=== PATIENT | male | born 1965 | race Caucasian/White ===

== ENCOUNTER 2020-04-03 20:52 | Emergency (ER) | payer OTHER, MEDICAID, SELFPAY ==
[2020-04-03 20:58] VITALS: BP 187/103; PULSE 78; RESP 19; TEMP 36.6; O2SAT 98; BMI 32.5
[2020-04-03 21:00] VITALS: BP 187/103; PULSE 83; RESP 17; O2SAT 98
--- NOTE | 2020-04-03 21:03 | ECG_ITS ---
APPROVED REPORT Exam: Resting ECG HR:77 bpm ECG Measurements Heart Rate 77 AXES ME 178 P 62 QRSd 98 QRS 31 QT 388 T 27 QTc 439 Conclusion Normal sinus rhythm ST abnormality, possible digitalis effect Abnormal ECG Electronically signed by : Kushal Scherer, 04/05/2020 19:58:57
--- NOTE | 2020-04-03 21:04 | CT_ITS ---
PROCEDURE: CT HEAD/BRAIN W CON CLINICAL INDICATION: numbness left face NUMBNESS-LEFT SIDE. PT STATES LEFT ARM HAS BEEN GETTING NUMB OFF AND ON FOR AWHILE ALSO HAD LEFT SIDED FACIAL NUMBNESS TONIGHT. PT CHEWS TOBACCO NO SURGERIES OR HX OF CA NO PRIORS COMPARISON: CT CT HEAD/BRAIN WO CON from 04/03/[address] ANGIO NECK from 04/03/2020 TECHNIQUE: IV Contrast: 100ML Isovue 370 Axial images obtained. All CT scans at the facility use one or more dose reduction, viz: automated exposure control, ma/kV adjustment per patient size (including targeted exams where dose is matched to indication, i.e. head), or iterative reconstruction technique. FINDINGS: CTA neck: The aortic arch, great vessels, carotids and vertebral show no evidence of significant stenosis, occlusive change, ulcerating plaque, or dissection. There is minimal amount of calcific plaque at the ostium of the right vertebral with approximately 20 percent narrowing. CTA head: No aneurysm, AVM, , dissection, or major intracranial occlusive process. No enhancing lesions. IMPRESSION: No significant stenosis, dissection, occluding thrombus or aneurysm Dictated by: Obie Telles MD 04/04/2020 10:53 Obie Telles MD in [facility] 04/05/2020 07:43
--- NOTE | 2020-04-03 21:04 | CT_ITS ---
Procedure: CT ANGIO NECK CLINICAL HISTORY: numbness left face Left upper extremity and left-sided facial numbness COMPARISON: No exams were available for comparison TECHNIQUE: IV Contrast: 100ml Isovue 370 Axial images obtained with sagittal and coronal reformats. All CT scans at the facility use one or more dose reduction, viz: automated exposure control, ma/kV adjustment per patient size (including targeted exams where dose is matched to indication, i.e. head), or iterative reconstruction technique. FINDINGS: CTA neck: The aortic arch, great vessels, carotids and vertebral show no evidence of significant stenosis, occlusive change, ulcerating plaque, or dissection. There is minimal amount of calcific plaque at the ostium of the right vertebral with approximately 20 percent narrowing. CTA head: No aneurysm, AVM, , dissection, or major intracranial occlusive process. No enhancing lesions. IMPRESSION: No significant stenosis, dissection, occluding thrombus or aneurysm Dictated by: Obie Telles MD 04/04/2020 08:40 Obie Telles MD in [facility] 04/04/2020 08:42
--- NOTE | 2020-04-03 21:04 | XR_ITS ---
PROCEDURE: XR CHEST 2V CLINICAL HISTORY: numbness left face, cp Chest pain COMPARISON: CR CXR CHEST(2 VIEWS-NOT PORTABLE) from 08/05/2015 CR CXR1 CHEST-PORTABLE from 08/07/2015 FINDINGS: The cardiomediastinal silhouette and pulmonary vascularity are within normal limits. The lungs are clear without infiltrates, suspicious nodules, or pleural effusions. No acute bony abnormalities. IMPRESSION: No acute findings. Dictated by: Obie Telles MD 04/04/2020 05:35 Obie Telles MD in [facility] 04/04/2020 05:35
[2020-04-03 21:13] LABS: Chloride 98 mmol/L (98-107); Sodium 138 mmol/L (136-145)
[2020-04-03 21:14] LABS: Basophils # 0.1 K/mm3 (0-0.2); Basophils % 0.8 % (0.1-2.0); Eosinophils # 0.2 K/mm3 (0.0-0.4); Hemoglobin 14.7 g/dL (14.1-18.0); Lymphocytes # 2.6 K/mm3 (0.7-4.5); Lymphocytes % 32.2 % (10-50); Mean Corpuscular HGB Conc 33.3 g/dL (31.8-35.4); Mean Corpuscular Hemoglobin 29.2 pg (27.0-31.2); Mean Corpuscular Volume 87.6 fl (80-94); Mean Platelet Volume 8.4 fl (7.4-10.4); Monocytes # 0.5 K/mm3 (0.1-1.0); Monocytes % 6.4 % (1.7-9.3); Neutrophils # 4.7 K/mm3 (1.8-7.8); Neutrophils % 58.6 % (37.0-80.0); Platelet Count 165 K/mm3 (142-424); Potassium 3.2 mmoL/L (3.5-5.1); Red Blood Count 5.03 M/mm3 (4.60-6.20); Red Cell Distribution Width 13.8 % (11.5-17.5)
[2020-04-03 21:16] LABS: Blood Urea Nitrogen 16 mg/dl (9-20); Creatinine Clearance Estimated 116 mL/min (50-200)
[2020-04-03 21:17] LABS: Anion Gap 9.2 mEq/L (5-15); Calcium 9.8 mg/dl (8.4-10.2); Carbon Dioxide 34 mmol/L (22.0-30.0); Estimated Glomerular Filt Rate 77 ml/min (>60); GFR (African American) 94 ML/MIN (>60); Glucose 198 mg/dl (74-100)
[2020-04-03 21:29] LABS: Troponin I < 0.01 ng/ml (0.00-0.034)
[2020-04-03 21:30] VITALS: BP 144/82; PULSE 75; RESP 17; O2SAT 95
[2020-04-03 21:48] LABS: Thyroid Stimulating Hormone 2.19 uIU/mL (0.465-4.68)
[2020-04-03 21:48] LABS: Microscopic, Urine URINE MICROSCOPIC (MICROSCOPIC)
[2020-04-03 21:53] LABS: Appearance,Urine CLEAR (Clear); Bilirubin,Urine Negative (Negative); Blood, Urine Negative (Negative); Color,Urine YELLOW (Yellow); Glucose,Urine (UA) Negative (Negative); Ketones,Urine Negative (Negative); Leukocyte Esterase,Urine Negative (Negative); Nitrate,Urine Negative (Negative); Protein,Urine Negative (Negative); Specific Gravity, Urine <= 1.005 (1.005-1.030); Urobilinogen,Urine 0.2 EU/dl (0.2)
[2020-04-03 22:00] VITALS: BP 130/83; PULSE 70; RESP 17; O2SAT 95
--- NOTE | 2020-04-03 22:14 | CT_ITS ---
PROCEDURE: CT HEAD/BRAIN WO CON CLINICAL INDICATION: numbness Left upper extremity numbness, left-sided facial numbness COMPARISON: No exams were available for comparison TECHNIQUE: Axial images obtained. All CT scans at the facility use one or more dose reduction, viz: automated exposure control, ma/kV adjustment per patient size (including targeted exams where dose is matched to indication, i.e. head), or iterative reconstruction technique. FINDINGS: No midline shift, mass effect, intracranial hemorrhage, hydrocephalus, or extra-axial fluid collection is evident. The calvarium has an unremarkable appearance. No mastoid effusion. No sinus air-fluid level. IMPRESSION: No acute intracranial finding Dictated by: Obie Telles MD 04/04/2020 08:31 Obie Telles MD in [facility] 04/04/2020 09:01
[2020-04-03 23:00] VITALS: BP 144/77; PULSE 61; RESP 17; O2SAT 95
--- NOTE | 2020-04-03 23:15 | HMH.EDNEU ---
ED Disposition Clinical Impression: TIA (transient ischemic attack), Chest pain at rest HTN (hypertension) Qualifiers: Hypertension type: essential hypertension Qualified Code(s): I10 - Essential (primary) hypertension Diabetes mellitus Qualifiers: Diabetes mellitus type: type 2 Diabetes mellitus director long term care insulin use: unspecified director long term care insulin use status Diabetes mellitus complication status: with other specified complication Qualified Code(s): E11.69 - Type 2 diabetes mellitus with other specified complication Disposition: Home, Self-Care Condition on Discharge: Good Instructions: DI for Chest Pain Additional Instructions: call pcp for follow up Referrals: Che Rodriguez [Primary Care Provider] - - Critical Care Critical Care Time: No Attestation: On 04/03/20, the high probability of a clinically significant, sudden or life threatening deterioration of the following system(s) required my full and direct attention, intervention and personal management. The time I documented below is in addition to time spent performing reported procedures but includes the following listed in this critical care notation. Medical Decision Making - Medical Records Medical records reviewed: Yes: I reviewed the patient's medical records. - Yemi Inquiry Pt receiving controlled substance: No Vital Signs: 04/03/20 20:58 04/03/20 21:00 04/03/20 21:30 Temperature 97.8 F Temperature Source Oral Pulse Rate [Right Brachial] 78 83 75 Respiratory Rate 19 17 17 Blood Pressure [Right Arm] 187/103 H 187/103 H 144/82 H Blood Pressure Mean [Right Arm] 131 131 102 Blood Pressure Source [Right Arm] Automatic Cuff Automatic Cuff Automatic Cuff Blood Pressure Position [Right Arm] Sitting Supine Supine 02 Sat by Pulse Oximetry 98 98 95 Oxygen Delivery Method Room Air Room Air Room Air 04/03/20 22:00 Temperature Temperature Source Pulse Rate [Right Brachial] 70 Respiratory Rate 17 Blood Pressure [Right Arm] 130/83 Blood Pressure Mean [Right Arm] 98 Blood Pressure Source [Right Arm] Automatic Cuff Blood Pressure Position [Right Arm] Supine 02 Sat by Pulse Oximetry 95 Oxygen Delivery Method Room Air - Lab Data Lab results reviewed: Yes: I reviewed the patient's lab results. Lab Results 04/03/20 20:58: WBC 8.0, RBC 5.03, Hgb 14.7, Hct 44.0, MCV 87.6, MCH 29.2, MCHC 33.3, RDW 13.8, Plt Count 165, MPV 8.4, Neut % (Auto) 58.6, Lymph % (Auto) 32.2, [place]ates % (Auto) 6.4, Eos % (Auto) 2.0, Baso % (Auto) 0.8, Neut # (Auto) 4.7, Lymph # (Auto) 2.6, Yates # (Auto) 0.5, Eos # (Auto) 0.2, Baso # (Auto) 0.1 04/03/20 20:58: Sodium 138, Potassium 3.2 L, Chloride 98, Carbon Dioxide 34 H, Anion Gap 9.2, BUN 16, Creatinine 1.00, Estimated Creat Clear 116, Estimated GFR 77, Est GFR ( Amer) 94, Glucose 198 H, Calcium 9.8, Troponin I < 0.01, TSH 2.19 04/03/20 20:58: Free T4 1.20 04/03/20 21:45: Urine Color Yellow, Urine Appearance Clear, Urine pH 7.0, Ur Specific [place] <= 1.005, Urine Protein Negative, Urine Glucose (UA) Negative, Urine Ketones Negative, Urine Blood Negative, Urine Nitrate Negative, Urine Bilirubin Negative, Urine Urobilinogen 0.2, Ur Leukocyte Esterase Negative, Ur Squamous Epith Cells 3-5 04/04/20 00:20: Troponin I < 0.01 Result diagrams: 04/03/20 20:58 04/03/20 20:58 Orders (Tests/Meds): ED MEDICATIONS Discontinued Medications Generic Name Dose Route Start Last Admin Trade Name Elianq PRN Reason Stop Dose Admin Belladonna Alkaloids 60 ml 04/03/20 23:51 04/03/20 23:52 Gi Cocktail 60ml Udc PO 04/03/20 23:52 60 ml ONCE ONE Administration Iopamidol 100 ml 04/03/20 23:38 04/03/20 22:25 Iopamidol-370 (76%);100ml Bottle IV 04/03/20 23:39 100 ml ONCE ONE Administration Ioversol 75 ml 04/03/20 23:38 Ioversol-350 (74%) 100ml Vial IV 04/03/20 23:39 ONCE ONE Protocol Sodium Chloride 10 ml 04/03/20 23:38 04/03/20 22:25 Sodium Chloride 0.9% 10ml Syr (Rad Only) IV 04/03/20 2
[2020-04-03 23:30] VITALS: BP 154/83; PULSE 61; RESP 17; O2SAT 95
[2020-04-04] VITALS: BP 145/85; PULSE 59; RESP 17; O2SAT 95
[2020-04-04 00:30] VITALS: BP 149/88; PULSE 55; RESP 17; O2SAT 98
[2020-04-04 01:00] VITALS: BP 147/81; PULSE 60; RESP 18; O2SAT 98
[2020-04-04 01:02] LABS: Troponin I < 0.01 ng/ml (0.00-0.034)
[2020-04-04 02:19] VITALS: BP 125/74; PULSE 73; RESP 16; TEMP 36.8; O2SAT 98
== END 2020-04-04 02:20 | disposition home or self-care (01) ==
PROVIDERS: Emergency Provider Emergency Medicine; PCP Nurse Practitioner Acute Care
DX: G45.8 Other transient cerebral ischemic attacks and related syndromes (principal); E11.65 Type 2 diabetes mellitus with hyperglycemia; I10 Essential (primary) hypertension; Z88.1 Allergy status to other antibiotic agents; Z79.899 Other long term (current) drug therapy
CPT/HCPCS: 36415; 70450; 70460; 70496; 70498; 71046; 80048; 81001; 84439; 84443; 84484; 85025; 93005; 96365; 99284; Q9967

== ENCOUNTER 2021-01-05 19:35 | Emergency (ER) | payer OTHER, SELFPAY ==
[2021-01-05 20:18] VITALS: BP 146/97; PULSE 65; RESP 19; TEMP 36.6; O2SAT 98; BMI 33.0
[2021-01-05 20:30] VITALS: BP 146/97; PULSE 65; RESP 19; TEMP 36.6
--- NOTE | 2021-01-05 20:46 | HMH.EDUTC ---
[facility] Disposition Clinical Impression: Exposure to COVID-19 virus Disposition: Home, Self-Care Condition on Discharge: Good Instructions: DI for COVID-19 (Suspected or Confirmed ), Preventing the Spread of Coronavirus Discharge Instructions Additional Instructions: Drink plenty of fluids. Take tylenol for pain or fever. Return if you begin to have difficulty breathing. Follow up with your regular doctor. GO TO THE ER FOR ANY WORSENING SYMPTOMS Quarantine until you know the results of your covid-19 test. If it is positive, the health department should call you and give you further instructions about your length of Quarantine and other things. Notify your school or workplace of your results and follow their instructions regarding return to work/school. Referrals: Che Rodriguez [Primary Care Provider] - Time of Disposition: 20:48 Medical Decision Making - Medical Records Medical records reviewed: No: I reviewed the patient's medical records. - Yemi Inquiry Pt receiving controlled substance: No Vital Signs: 01/05/21 20:18 01/05/21 20:30 Temperature 98 F 98 F Temperature Source Oral Pulse Rate 65 Pulse Rate [Left] 65 Respiratory Rate 19 19 Blood Pressure 146/97 H Blood Pressure [Right Arm] 146/97 H Blood Pressure Mean [Right Arm] 113 02 Sat by Pulse Oximetry 98 Orders (Tests/Meds): ORDERS Category Date Time Status Covid-19 Nasal PCR ([facility]) Routine Lab 01/05/21 20:13 Received [facility] HPI - General Stated complaint: covid test Time Seen by Provider: 01/05/21 20:46 Mode of Arrival: Ambulatory Source of Information: Patient Limitations: No Limitations Description of Symptoms (Recalled from Triage Doc. by RN): pt c/o a CHRISTY. expost last week to covid positive family member. HEENT Symptoms (Recalled from RN notes): Yes (CHRISTY) Resp Symptoms (Recalled from RN notes): No Skin Symptoms (Recalled from RN notes): No MS Symptoms (Recalled from RN notes): No Functional Status (Recalled from RN notes): na - History of Present Illness Provider Complaint: He was exposed by a family member and one of his coworkers with covid-19 last week. He has had a head ache on and off for the past 2 days. He has been vaccinated against covid-19. He denies any fever/chills/shortness or breath, and cough. - Related Data Home Medications Medication Instructions Recorded Confirmed Amlodipine Besylate [Amlodipine 5 mg PO BID 04/03/20 04/03/20 10mg Tab] Aspirin 81 mg PO HS 04/03/20 04/03/20 Magnesium Oxide 400 mg PO DAILY 04/03/20 04/03/20 Metformin HCl 500 mg PO TID 04/03/20 04/03/20 Olmesartan/Hydrochlorothiazide 40 mg PO HS 04/03/20 04/03/20 [Olmesartan-Hctz 20-12.5 mg Tab] Potassium 99 mg PO DAILY 04/03/20 04/03/20 Rosuvastatin Calcium 10 mg PO HS 04/03/20 04/03/20 Tramadol HCl [Tramadol 50mg 50 mg PO HSP PRN 04/03/20 04/03/20 Tab] Vit D3-Vit K/Berberine/Hops 1 each PO DAILY 04/03/20 04/03/20 [Ostera Tablet] carvediloL [Coreg 6.25mg 12.5 mg PO BID 04/03/20 04/03/20 Tablet] hydroCHLOROthiazide 25 mg PO DAILY 04/03/20 04/03/20 [Hydrochlorothiazide] Allergies Allergy/AdvReac Type Severity Reaction Status Date / Time ciprofloxacin [From CIPRO] Allergy Mild Verified 04/03/20 23:50 - Worker's Comp Is this a Worker's Comp case?: No [facility] History - Hepatitis A Screen Drug use history?: No High risk sexual behaviors?: No History of sexually transmitted infection?: No Currently employed?: No Childcare worker?: No Do you have indoor plumbing?: Yes Do you have electricity?: Yes Attestation statement:: This patient has been screened for Hepatitis A risk factors. I have reviewed the patient's past medical history: Yes ROS Obtained: Yes All systems reviewed & no additional complaints - Constitutional Constitutional: Reports system reviewed and no additional complaints, except as docu - Eyes Eyes: Reports system reviewed and no additional complaints,
== END 2021-01-05 21:04 | disposition home or self-care (01) ==
PROVIDERS: Emergency Provider Nurse Practitioner Family; PCP Nurse Practitioner Acute Care
DX: U07.1 COVID-19 (principal)
CPT/HCPCS: 99202; G0463; U0003

== ENCOUNTER → 2021-06-21 11:57 | Outpatient (CLI) | payer OTHER, SELFPAY ==
--- NOTE | 2021-06-21 12:08 | XR_ITS ---
FINAL REPORT CLINICAL HISTORY: RIB PAIN ON LEFT SIDE, RIB INJURY 3 DAYS AGO COMPARISON: 04/04/2020 FINDINGS: 3 VIEW LEFT RIB SERIES AND CHEST X-RAY. Chest: The heart is normal in size. The mediastinum is normal. The lungs are clear. There is no pneumothorax. Ribs: Three views demonstrate no acute displaced fracture. IMPRESSION: No acute process Reviewed, Interpreted and Dictated by Jimi aRmos MD Transcribed by Eugenia Aquino Authenticated by Jimi Ramos MD on 06/21/2021 02:58:21 PM [facility]
== END ==
PROVIDERS: PCP Family Medicine; Visit Provider Nurse Practitioner Family
DX: R07.81 Pleurodynia (principal); S29.9XXA Unspecified injury of thorax, initial encounter
CPT/HCPCS: 71101

== ENCOUNTER 2021-12-06 10:47 | Emergency (ER) | payer OTHER, SELFPAY ==
[2021-12-06 11:01] VITALS: BP 145/90; PULSE 68; RESP 16; TEMP 36.8; O2SAT 96; BMI 33.0
--- NOTE | 2021-12-06 11:15 | ECG_ITS ---
APPROVED REPORT Exam: Resting ECG HR:63 bpm ECG Measurements Heart Rate 63 AXES OH 180 P 47 QRSd 99 QRS -5 QT 421 T -1 QTc 429 Conclusion SINUS RHYTHM NORMAL ECG UNCONFIRMED REPORT Electronically signed by : Kushal Scherer MD 12/07/2021 19:54:51
--- NOTE | 2021-12-06 11:20 | HMH.EDUTC ---
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 - Yemi Inquiry Pt receiving controlled substance: No Vital Signs: 12/06/21 11:01 Temperature 98.3 F Temperature Source Oral Pulse Rate [Left] 68 Respiratory Rate 16 Blood Pressure [Right Arm] 145/90 H Blood Pressure Mean [Right Arm] 108 02 Sat by Pulse Oximetry 96 [facility] HPI - General Stated complaint: High BP Time Seen by Provider: 12/06/21 11:20 Mode of Arrival: Ambulatory Source of Information: Patient Limitations: No Limitations Description of Symptoms (Recalled from Triage Doc. by RN): patient comes in with complaints of high blood pressure. started 10 years ago, medication seems to not be working. monday he noticed that his blood pressure was high. when his blood pressure is up he experiences numbness in his legs, feet and arms HEENT Symptoms (Recalled from RN notes): No Resp Symptoms (Recalled from RN notes): No Skin Symptoms (Recalled from RN notes): No MS Symptoms (Recalled from RN notes): No Functional Status (Recalled from RN notes): n/a - History of Present Illness Provider Complaint: He is here with complaints of his blood pressure running high at home and bilateral leg numbness for the past several days. He denies any back pain and any injury. He denies any recent chest pain. - Related Data Home Medications Medication Instructions Recorded Confirmed Amlodipine Besylate [Amlodipine 5 mg PO BID 04/03/20 04/03/20 10mg Tab] Aspirin 81 mg PO HS 04/03/20 04/03/20 Magnesium Oxide 400 mg PO DAILY 04/03/20 04/03/20 Metformin HCl 500 mg PO TID 04/03/20 04/03/20 Olmesartan/Hydrochlorothiazide 40 mg PO HS 04/03/20 04/03/20 [Olmesartan-Hctz 20-12.5 mg Tab] Potassium 99 mg PO DAILY 04/03/20 04/03/20 Rosuvastatin Calcium 10 mg PO HS 04/03/20 04/03/20 Tramadol HCl [Tramadol 50mg 50 mg PO HSP PRN 04/03/20 04/03/20 Tab] Vit D3-Vit K/Berberine/Hops 1 each PO DAILY 04/03/20 04/03/20 [Ostera Tablet] carvediloL [Coreg 6.25mg 12.5 mg PO BID 04/03/20 04/03/20 Tablet] hydroCHLOROthiazide 25 mg PO DAILY 04/03/20 04/03/20 [Hydrochlorothiazide] Allergies Allergy/AdvReac Type Severity Reaction Status Date / Time ciprofloxacin [From CIPRO] Allergy Mild Verified 12/06/21 11:08 - Worker's Comp Is this a Worker's Comp case?: No [facility] History - Hepatitis A Screen Attestation statement:: This patient has been screened for Hepatitis A risk factors. I have reviewed the patient's past medical history: Yes ROS Obtained: Yes All systems reviewed & no additional complaints - Constitutional Constitutional: Reports as per HPI, Denies chills, Denies fever(s), Denies poor appetite, Denies malaise - Eyes Eyes: Denies eye discharge - ENT Ears, Nose, Mouth, and Throat: Reports as per HPI - Cardiovascular Cardiovascular: Denies chest pain - Respiratory Respiratory: Denies chest congestion, Reports cough - Gastrointestinal Gastrointestingal: Reports: nausea. Denies: abdominal pain, cramping, diarrhea, vomiting Physical Exam - General General appearance: alert, in no apparent distress - Head Head exam: atraumatic, normocephalic, normal inspection - Eye Eye exam: Present: normal appearance, PERRL, EOMI - ENT ENT exam: Present: normal exam, normal oropharynx, mucous
[2021-12-06 11:45] VITALS: BP 152/89; PULSE 62; RESP 18; O2SAT 96; BMI 33.0
--- NOTE | 2021-12-06 11:48 | XR_ITS ---
FINAL REPORT TECHNIQUE: Single view chest CLINICAL HISTORY: cough COMPARISON: 06/21/2021 FINDINGS: A single view of the chest was obtained. The heart and mediastinum are within normal limits. The lungs are clear. There is no pneumothorax. Osseous structures are unremarkable. IMPRESSION: No acute cardiopulmonary process. Reviewed, Interpreted and Dictated by Miguel Simmons III, MD Transcribed by Eugenia Aquino Authenticated and . [facility]
[2021-12-06 12:17] LABS: Basophils # 0.1 K/mm3 (0-0.2); Basophils % 1.3 % (0.1-2.0); Eosinophils # 0.1 K/mm3 (0.0-0.4); Eosinophils % 1.7 % (0.1-12.0); Hematocrit 45.2 % (42.0-52.0); Hemoglobin 14.4 g/dL (14.1-18.0); Lymphocytes # 1.6 K/mm3 (0.7-4.5); Lymphocytes % 31.2 % (10-50); Mean Corpuscular HGB Conc 31.7 g/dL (31.8-35.4); Mean Corpuscular Hemoglobin 28.9 pg (27.0-31.2); Mean Corpuscular Volume 91.1 fl (80-94); Mean Platelet Volume 8.5 fl (7.4-10.4); Monocytes # 0.3 K/mm3 (0.1-1.0); Monocytes % 5.4 % (1.7-9.3); Neutrophils # 3.1 K/mm3 (1.8-7.8); Neutrophils % 60.4 % (37.0-80.0); Platelet Count 169 K/mm3 (142-424); Red Blood Count 4.97 M/mm3 (4.60-6.20); Red Cell Distribution Width 14.1 % (11.5-17.5); White Blood Count 5.1 K/mm3 (4.8-10.8)
[2021-12-06 12:21] LABS: Chloride 100 mmol/L (98-107)
[2021-12-06 12:22] LABS: Potassium 3.5 mmoL/L (3.5-5.1); Sodium 141 mmol/L (136-145)
[2021-12-06 12:24] LABS: Alanine Aminotransferase 23 U/L (12-78); Albumin Level 4.5 g/dl (3.5-5.0); Albumin/Globulin Ratio 1.5 (1.1-1.8); Alkaline Phosphatase 81 U/L (38-126); Anion Gap 9.5 mEq/L (5-15); Aspartate Amino Transferase 31 U/L (17-59); Bilirubin,Total 0.8 mg/dl (0.2-1.3); Carbon Dioxide 35 mmol/L (22.0-30.0); Globulin 3.1 g/dL (1.3-3.2); Total Protein,Serum 7.6 g/dl (6.3-8.2)
[2021-12-06 12:25] LABS: Calcium 9.7 mg/dl (8.4-10.2); Glucose 147 mg/dl (74-100)
[2021-12-06 12:29] LABS: Blood Urea Nitrogen 14 mg/dl (9-20); Creatinine Clearance Estimated 132 mL/min (50-200); Estimated Glomerular Filt Rate 87 ml/min (>60); GFR (African American) 105 ML/MIN (>60)
[2021-12-06 12:37] LABS: Troponin I < 0.01 ng/ml (0.00-0.034)
[2021-12-06 12:45] VITALS: BP 146/83; PULSE 54; O2SAT 97
[2021-12-06 12:49] VITALS: BP 146/83; PULSE 63; O2SAT 95
--- NOTE | 2021-12-06 12:49 | PC.NURSE ---
rounded on pt, updated about poc. no needs at this time
--- NOTE | 2021-12-06 13:05 | PC.NURSE ---
ed md at bedside discussing poc with pt, discussing lab results
--- NOTE | 2021-12-06 13:11 | HMH.EDGENADL ---
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 The time I documented below is in addition to time spent performing reported procedures but includes the following listed in this critical care notation. Medical Decision Making - Medical Records Medical records reviewed: Yes: I reviewed the patient's medical records. - Yemi Inquiry Pt receiving controlled substance: No Vital Signs: 12/06/21 11:01 12/06/21 11:45 12/06/21 12:45 Temperature 98.3 F Temperature Source Oral Pulse Rate 54 L Pulse Rate [Left] 68 62 Respiratory Rate 16 18 Blood Pressure 146/83 H Blood Pressure [Right Arm] 145/90 H 152/89 H Blood Pressure Mean [Right Arm] 108 110 Blood Pressure Source [Right Arm] Automatic Cuff Blood Pressure Position [Right Arm] Sitting 02 Sat by Pulse Oximetry 96 96 97 Oxygen Delivery Method Room Air 12/06/21 12:49 Temperature Temperature Source Pulse Rate 63 Pulse Rate [Left] Respiratory Rate Blood Pressure 146/83 H Blood Pressure [Right Arm] Blood Pressure Mean [Right Arm] Blood Pressure Source [Right Arm] Blood Pressure Position [Right Arm] 02 Sat by Pulse Oximetry 95 Oxygen Delivery Method - Lab Data Lab Results 12/06/21 11:50: WBC 5.1, RBC 4.97, Hgb 14.4, Hct 45.2, MCV 91.1, MCH 28.9, MCHC 31.7 L, RDW 14.1, Plt Count 169, MPV 8.5, Neut % (Auto) 60.4, Lymph % (Auto) 31.2, [place] % (Auto) 5.4, Eos % (Auto) 1.7, Baso % (Auto) 1.3, Neut # (Auto) 3.1, Lymph # (Auto) 1.6, [place] # (Auto) 0.3, Eos # (Auto) 0.1, Baso # (Auto) 0.1 12/06/21 11:50: Sodium 141, Potassium 3.5, Chloride 100, Carbon Dioxide 35 H, Anion Gap 9.5, BUN 14, Creatinine 0.90, Estimated Creat Clear 132, Estimated GFR 87, Est GFR ( Amer) 105, Glucose 147 H, Calcium 9.7, Total Bilirubin 0.8, AST 31, ALT 23, Alkaline Phosphatase 81, Troponin I < 0.01, Total Protein 7.6, Albumin 4.5, Globulin 3.1, Albumin/Globulin Ratio 1.5 Result diagrams: 12/06/21 11:50 12/06/21 11:50 Orders (Tests/Meds): ORDERS Category Date Time Status XR chest portable Stat Exams 12/06/21 11:48 Taken Troponin I Q3H Lab 12/06/21 15:00 Ordered Troponin I Q3H Lab 12/06/21 18:00 Ordered - Radiology Data #1 Image(s): Chest Image Reviewed: Yes I reviewed the patient's radiology results, Yes I reviewed the patient's radiology image, Yes I have reviewed radiologist's interpretation Preliminary Findings: Normal/NAD - ECG Data Tracing #1 I reviewed this ECG and interpreted as documented below: ECG initial impression date: 12/06/21 ECG initial impression time: 11:15 ECG normal with no acute: arrhythmias, ischemia, conduction abnormalities, chamber hypertrophy Normal Sinus Rhythm: Yes - Reevaluation(s) Time: 13:38 Reevaluation #1: On reevaluation, patient is feeling better. Blood pressure stable. Troponin negative. EKG normal. Patient follow-up with PCP. Given strict return precautions. Verbalized understanding. Medical Decision Narrative: 56-year-old male presented to the emergency department at with some general nonspecific complaints. These appear to be chronic in nature. Patient is nontoxic-appearing. Afebrile.
[2021-12-06 13:40] VITALS: BP 135/80; PULSE 70; RESP 20; TEMP 36.6; O2SAT 97
== END 2021-12-06 13:40 | disposition home or self-care (01) ==
LOC: UTC 11:39 → ER 11:42
PROVIDERS: Emergency Provider Emergency Medicine; PCP Nurse Practitioner Acute Care
DX: I10 Essential (primary) hypertension (principal); R07.9 Chest pain, unspecified; R42 Dizziness and giddiness; R06.02 Shortness of breath; M54.9 Dorsalgia, unspecified; R53.1 Weakness; R20.2 Paresthesia of skin; R53.81 Other malaise; R14.0 Abdominal distension (gaseous); E11.69 Type 2 diabetes mellitus with other specified complication; Z79.1 Long term (current) use of non-steroidal anti-inflammatories (NSAID); Z79.4 Long term (current) use of insulin; Z79.51 Long term (current) use of inhaled steroids; Z79.82 Long term (current) use of aspirin; Z79.84 Long term (current) use of oral hypoglycemic drugs; Z79.899 Other long term (current) drug therapy; Z88.8 Allergy status to other drugs, medicaments and biological substances
CPT/HCPCS: 71045; 80053; 84484; 85025; 93005; 99283; 99284

== ENCOUNTER 2023-10-06 07:53 | Outpatient (CLI) | payer OTHER, SELFPAY ==
--- NOTE | 2023-10-06 07:53 | FL_ITS ---
FINAL REPORT CLINICAL HISTORY: dysphagia ft 1:23 dap 923.44 FINDINGS: ESOPHAGRAM HISTORY: Abdominal pain, dysphagia. PROCEDURE: The patient ingested barium. Effervescent crystals were also administered. Spot and overhead films were obtained. FINDINGS: The esophagus demonstrates an esophageal web involving the cervical esophagus. There is a small sliding-type hiatal hernia. The barium tablet briefly hangs at the site of the hiatal hernia but does pass. There is no gastroesophageal reflux. Peristalsis is normal. IMPRESSION: 1. Esophageal web involving cervical esophagus. 2. Small sliding type hiatal hernia. Fluoroscopy time: 1 minute 23seconds Fluoro dose: 923.44 DAP in [employer] Films reviewed , interpreted and dictated by Dr. Simmons Transcribed by Javi Seals PA-C. Reviewed, Interpreted and Dictated by Miguel Simmons III, MD Transcribed by RUI Olguin Authenticated and [facility]
--- NOTE | 2023-10-06 07:53 | CT_ITS ---
FINAL REPORT TECHNIQUE: Thin section axial CT images of the facial bones and sinuses were obtained without contrast. Coronal reformatted images were also obtained.This study was performed with techniques to keep radiation doses as low as reasonably achievable, (ALARA). Individualized dose reduction techniques using automated exposure control or adjustment of mA and/or kV according to the patient''''s size were employed. CLINICAL HISTORY: Chronic Sinusitis FINDINGS: There is a small retention cyst or polyp in the left maxillary sinus. There is mild mucosal thickening in several ethmoid air cells and in the right frontal sinus. No fluid levels are identified. The ostiomeatal units have an unremarkable appearance. There is minimal leftward deviation of the septum. No fracture or acute bony abnormality is identified. IMPRESSION: Sinusitis as above. Reviewed, Interpreted and Dictated by Miguel Simmons III, MD Transcribed by Cherrie Campos Authenticated and [facility]
[2023-10-06] MEDS: E-Z-GASII EFFERVESCENT GRANULES;1PK 1 EACH PO (08:20)
[2023-10-06] MEDS: BARIUM SULFATE (E-Z-HD 340GM);135ML BOTTLE 135 ML PO (08:20)
[2023-10-06] MEDS: BARIUM SULFATE(LIQUID E-Z-PAQUE);355ML BOTTLE 355 ML PO (08:20)
== END 2023-10-06 23:59 | disposition home or self-care (01) ==
LOC: RAD 07:53
PROVIDERS: PCP Nurse Practitioner Acute Care; Visit Provider Nurse Practitioner
DX: J32.9 Chronic sinusitis, unspecified (principal); R13.10 Dysphagia, unspecified; Z87.891 Personal history of nicotine dependence
CPT/HCPCS: 70486; 74220

== ENCOUNTER 2023-10-19 08:33 | Day surgery (SDC) | payer OTHER, SELFPAY ==
[2023-10-18 12:46] VITALS: BMI 28.7
[2023-10-19] MEDS: LACTATED RINGERS 1000ML 1,000 ML 25 ML IV (08:46)
[2023-10-19 08:53] VITALS: BP 146/87; PULSE 54; RESP 18; TEMP 36.4; O2SAT 96
--- NOTE | 2023-10-19 09:08 | EXP.ANES.CKL ---
[facility] Disclaimer: The information contained in this section may have been updated after the patient was seen, as this information can be updated by other users. Medical History Deviated nasal septum Dysphagia Chronic sinusitis Surgical History (Updated 10/19/23 @ 08:53 by Silvia Payne RN) History of cardiac cath History of placement of ear tubes Family History Other No significant family history Social History (Updated 10/19/23 @ 08:53 by Silvia Payne RN) Smoking Status: Former smoker tobacco type: cigars and smokeless tobacco alcohol intake: never substance use type: former substance user current occupational status: other Travel in the last 8 weeks: None [facility] Anesthesia Checklist Patient Identification Patient Identification: Arm Band Structural Data Admitted From: Home Planned Operative Procedure/s: EGD Consent for Planned Operative Procedure(s) Verified: Yes Verified Documents: Surgical Consent and History and Physical NPO Status Verified Time NPO: 00:00 Additional verifications Anesthesia Reactions: No Airway Assessment Mallampati Score:: Class II C-Spine Mobility Assessed: Yes TMJ Mobility Assessed: Yes Dentition: Edentulous Neurological Assessment Level of Consciousness: Awake, Alert and Appropriate Anesthesia Plan Anesthesia Risk discussed: Yes Anesthesia Plan: Verified ASA Class: II Anesthesia Type: MAC
[2023-10-19 09:10] VITALS: O2SAT 96
--- NOTE | 2023-10-19 09:23 | HMH.SCOPE ---
Procedure: Date: 10/19/23 Patient Date of :: 1965 Procedure Performed:: EGD with biopsies and dilation Indications:: Dysphagia, abnormal barium study Performing Provider:: Diane Panchal MD Referring Provider:: Chhaya Santoyo APRN Sedation:: Propofol Procedure:: The gastroscope was gently passed through the incisoral orifice into the oral cavity and under direct visualization the esophagus was intubated. The endoscope was passed down the esophagus, through the stomach, and into the duodenum. Color, texture, mucosa, and anatomy of the esophagus, stomach, and duodenum were carefully examined with the scope. Findings:: Oropharynx: normal Esophagus: Large area of inlet patch proximally with a web, biopsied, and dilated with 56F bougie EG Junction: intact at 40 cm Cardia: normal Fundus: normal Body: normal Antrum: normal Duodenal bulb: normal Duodenum (second and third portion): normal Impression: Esophageal web-dilated Inlet patch Specimens:: Esophagus Recommendations:: Repeat dilation in about THREE years or so, sooner if clinically indicated. Complications:: None Estimated blood obtained (mL): 0 Colonoscopy Component Colonoscopy Component Was a colonoscopy performed during today's procedure?: No
[2023-10-19 09:27] VITALS: BP 145/84; PULSE 56; RESP 14; TEMP 36.7; O2SAT 95
[2023-10-19 09:37] VITALS: BP 149/84; PULSE 58; RESP 16; O2SAT 95
[2023-10-19 09:47] VITALS: BP 145/88; BP 149/93; PULSE 55; PULSE 58; RESP 16; RESP 18; O2SAT 94; O2SAT 96
[2023-10-19 18:48] LABS: POC Glucose,Bedside 111 (70-110)
== END 2023-10-19 10:15 | disposition home or self-care (01) ==
PROVIDERS: PCP Nurse Practitioner Acute Care; Visit Provider Internal Medicine Gastroenterology
PROC: 0DJ08ZZ Inspection of Upper Intestinal Tract, Via Natural or Artificial Opening Endoscopic (ICD-10-PCS; CPT 43235; principal; 2023-10-19 09:30)
DX: R13.10 Dysphagia, unspecified (principal); R93.3 Abnormal findings on diagnostic imaging of other parts of digestive tract; Q39.4 Esophageal web; K22.89 Other specified disease of esophagus; K29.50 Unspecified chronic gastritis without bleeding; Z79.899 Other long term (current) drug therapy
CPT/HCPCS: 43239; 43248; 82962; J7120

== ENCOUNTER 2024-01-11 17:24 | Emergency (ER) | payer OTHER, SELFPAY ==
--- NOTE | 2024-01-11 18:04 | ED_ITS ---
Discharge Plan Disposition Patient Disposition: Home, Self-Care Condition: Good Prescriptions Prescriptions: New dexamethasone 6 mg tablet 6 mg PO DAILY 6 Days Qty: 6 0RF benzonatate 100 mg capsule 100 mg PO TIDP PRN (Reason: Cough) Qty: 30 0RF ondansetron 4 mg Tablet,Disintegrating 4 mg PO Q8H PRN (Reason: Nausea) Qty: 12 0RF No Action fluticasone propionate [24 Hour Allergy Relief] 50 mcg/actuation spray,suspension 1 spray NS Q12H Rx Instructions: administer into each nostril celecoxib 200 mg capsule 200 mg PO Q12H Patient Comments: TAKE 1 CAPSULE BY MOUTH EVERY 12 HOURS NEEDED FOR PAIN carvedilol 12.5 mg tablet 12.5 mg PO TID Patient Comments: TAKE 1 TABLET BY MOUTH TWICE A DAY atorvastatin 10 mg tablet 10 mg PO HS Patient Comments: TAKE 1 TABLET BY MOUTH EVERY NIGHT AT BEDTIME tramadol 50 mg tablet 50 mg PO .prn Patient Comments: TAKE 1 TABLET BY MOUTH THREE TIMES A DAY NEEDED triamcinolone acetonide 0.1 % cream 1 applic topical NEEDED PRN (Reason: Rash) Patient Comments: APPLY THIN COAT TO AFFECTED AREA TWICE A DAY nifedipine [Procardia XL] 60 mg tablet extended release 24hr 60 mg PO DAILY Patient Comments: TAKE 1 TABLET BY MOUTH EVERY DAY tamsulosin [Flomax] 0.4 mg capsule 0.4 mg PO DAILY Patient Comments: TAKE 1 CAPSULE BY MOUTH EVERY DAY losartan 100 mg tablet 100 mg PO DAILY Patient Comments: TAKE 1 TABLET BY MOUTH EVERY DAY Ozempic 0.25 mg or 0.5 mg (2 mg/3 mL) pen injector 1 mg SQ WEEKLY Patient Comments: INJECT 0.25 MG EVERY WEEK FOR 28 DAYS potassium 99 MG tablet 99 mg PO DAILY hydrochlorothiazide 12.5 MG capsule 25 mg PO DAILY aspirin 81 MG tablet,chewable 81 mg PO HS vit D3-vit C-[id number]-[id number] 1 EACH tablet 1 each PO DAILY magnesium oxide 400 MG tablet 400 mg PO DAILY metformin 500 mg tablet 500 mg PO TID Referrals Follow up/Referrals: Che Rodriguez [Primary Care Provider] - See instructions Activity Restrictions/Add. Instructions Additional Instructions/Restrictions: Drink plenty of fluids. Take tylenol for pain or fever. Take the medications as directed. Follow up with your regular doctor. GO TO THE ER FOR ANY WORSENING SYMPTOMS Clinical Impressions Clinical Impression: COVID-19 Stand Alone Forms Stand Alone Forms: Work/School Release Instructions Patient Instructions: Ondansetron, Benzonatate, Dexamethasone, Coronavirus Disease 2019, Preventing the Spread of Coronavirus Discharge Instructions Print Language Print Language: Czech Discharge ED Provider: Tony Frankel [facility] [place] HPI General Stated complaint: home covid test + Time Seen by Provider: 01/11/24 18:03 History of Present Illness Provider Complaint: He states that he has felt bad and ran a fever for the past 4 days. He took 3 home covid-19 test that were all positive today. Related Data Home Medications ?Medication ?Instructions ?Recorded ?Confirmed aspirin 81 mg chewable tablet 81 mg PO HS antiplatelet 04/03/20 11/09/23 hydrochlorothiazide 12.5 mg capsule 25 mg PO DAILY htn 04/03/20 11/09/23 magnesium oxide 400 mg PO DAILY Supplement 04/03/20 11/09/23 potassium 99 mg tablet 99 mg PO DAILY Supplement 04/03/20 11/09/23 vitamin D3 500 unit-vit K 500 1 each PO DAILY Supplement 04/03/20 11/09/23 mcg-berberine 90 mg-hops 370 mg tablet fluticasone propionate 50 1 spray intranasal Q12H 12/13/21 11/09/23 mcg/actuation nasal spray,suspension (24 Hour Allergy Relief) atorvastatin 10 mg tablet 10 mg PO HS 09/13/23 11/09/23 carvedilol 12.5 mg tablet 12.5 mg PO TID 09/13/23 11/09/23 celecoxib 200 mg capsule 200 mg PO Q12H 09/13/23 11/09/23 losartan 100 mg tablet 100 mg PO DAILY 09/13/23 11/09/23 metformin 500 mg tablet 500 mg PO TID glucose 09/13/23 11/09/23 nifedipine 60 mg tablet,extended 60 mg PO DAILY 09/13/23 11/09/23 release 24 hr (Procardia XL) semaglutide 0.25 mg or 0.5 mg (2 1 mg SQ WEEKLY 09/13/23 11/09/23 mg/3 mL) subcutaneous pen injector (Ozempic) tamsulosin 0.4 mg capsule (Flomax) 0.4 mg PO DAILY 09/13/23 11/09/23 tramadol 50 mg tablet 50 mg PO .prn 09/13/23 11/09/23 triamcinolone acetonide 0.1 % 1 applic topical NEEDED PRN Rash 09/13/23 11/09/23 topical cream Previous Rx's ?Medication ?Instructions ?Recorded benzonatate 100 mg capsule 100 mg PO TIDP PRN Cough #30 caps 01/11/24 dexamethasone 6 mg tablet 6 mg PO DAILY 6 days #6 tabs 01/11/24 ondansetron 4 mg disintegrating 4 mg PO Q8H PRN Nausea #12 tabs 01/11/24 tablet Allergies Allergy/AdvReac Type Severity Reaction Status Date / Time ciprofloxacin [From CIPRO] Allergy Mild Verified 11/09/23 11:00 [facility] Disclaimer: The information contained in this section may have been updated after the patient was seen, as this information can be updated by other users. Medical History (Updated 01/11/24 @ 18:33 by Tony Frankel APRN) Dysphagia Chronic sinusitis Surgical History History of cardiac cath History of placement of ear tubes Family History Other No significant family history Social History Smoking Status: Former smoker tobacco type: cigars and smokeless tobacco alcohol intake: never substance use type: former substance user current occupational status: other Travel in the last 8 weeks: None ROS Obtained: Yes All systems reviewed & no additional complaints except as documented Constitutional Constitutional: Reports chills and Reports fever(s) Eyes Eyes: Denies eye discharge ENT Ears, Nose, Mouth, and Throat: Reports as per HPI Cardiovascular Cardiovascular: Denies chest pain Respiratory Respiratory: Denies chest congestion and Reports cough Gastrointestinal Gastrointestingal: Reports nausea; Denies abdominal pain, constipation, cramping, diarrhea or vomiting Musculoskeletal Musculoskeletal: Denies arthralgias Integumentary/Breasts Skin/Breast: Denies rash Neurologic Neurologic: Denies paresthesias Physical Exam General General appearance: alert and in no apparent distress Eye Eye exam: Present normal appearance, PERRL and EOMI ENT ENT exam: Present mucous membranes moist and normal external ear exam Expanded ENT Exam External ear exam: Present normal external inspection TM/Canal exam: Bilateral TM: erythema and bulging Nose exam: Absent sinus tenderness Nasal speculum exam: Bilateral: normal Mouth exam: Present normal external inspection; Absent drooling Teeth exam: Present normal inspection Throat exam: Present tonsillar erythema and tonsillomegaly Neck Neck exam: Present normal inspection, full ROM and trachea midline; Absent tenderness, lymphadenopathy or thyromegaly Chest Chest inspection: Present normal inspection and symmetric chest wall rise; Absent tenderness or rash Respiratory Respiratory exam: Present normal lung sounds bilaterally; Absent respiratory distress, wheezes, stridor or accessory muscle use Cardiovascular Cardiovascular exam: Present regular rate, normal rhythm and normal heart sounds Abdominal Exam Abdominal exam: Present soft; Absent distention, tenderness, guarding, rebound or rigidity Extremities Exam Extremities exam: Present normal inspection, full ROM and normal capillary refill; Absent tenderness or calf tenderness Back Exam Back exam: Present normal inspection and full ROM; Absent tenderness Neurological Exam Neurological exam: Present alert and oriented X3 Psychiatric Psychiatric exam: Present normal affect and normal mood Skin Skin exam: Present warm, dry, intact and normal color Lymphatic Lymphatic Findings: no adenopathy Medical Decision Making Medical Records Medical records reviewed: No I reviewed the patient's medical records. Yemi Inquiry Pt receiving controlled substance: No
[2024-01-11 18:08] VITALS: BP 108/63; PULSE 85; RESP 16; TEMP 36.7; O2SAT 96; BMI 28.7
[2024-01-11 18:50] VITALS: BP 108/63; PULSE 85; RESP 16; TEMP 36.7; O2SAT 96
== END 2024-01-11 18:51 | disposition home or self-care (01) ==
PROVIDERS: Emergency Provider Nurse Practitioner Family; PCP Nurse Practitioner Acute Care
DX: U07.1 COVID-19 (principal); R50.9 Fever, unspecified; R53.81 Other malaise
CPT/HCPCS: 87635; 99204; 99212; G0463

== ENCOUNTER 2024-11-20 06:53 | Day surgery (SDC) | payer OTHER, SELFPAY ==
[2024-11-18 14:34] VITALS: BMI 29.4
--- NOTE | 2024-11-20 07:05 | EXP.HP ---
History of Present Illness *Admission Date: 11/20/24 *Reason for visit:: Recurrent dysphagia *History of present illness: Mr. Mccann is a 59-year-old gentleman who is here diagnostic/therapeutic EGD because of his recurrent dysphagia. The patient did have dysphagia and had an EGD with Dr. Diane Panchal MD in September 2023. At that time, he did have a large proximal esophageal inlet patch with proximal esophageal web that was dilated to 56 Romanian with a bougie dilator. The patient did improve but has had recurrence. This was worse 2 to 3 weeks ago and he feels this in the retrohyoid region. This is primarily to solids and not liquids. He reports no frequent clearance of the throat, coughing or hoarseness. He does have a history of polyps tobacco/chewing tobacco use. He does have a prior history of GERD and had been on Prilosec for 10 years. He now only uses Prilosec as needed. He does get occasional heartburn and reflux. He reports no hematemesis, melena, weight loss or abdominal pain. He did have a colonoscopy elsewhere in [place] 2 years ago and was referred there by his PCP out of [place] (Che Rodriguez). He does state this examination was normal. [facility] Disclaimer: The information contained in this section may have been updated after the patient was seen, as this information can be updated by other users. Medical History Dysphagia Chronic sinusitis Surgical History History of cardiac cath History of placement of ear tubes Family History Other No significant family history Social History Smoking Status: Current every day smoker tobacco type: smokeless tobacco alcohol intake: current alcohol intake frequency: holidays/special occasions only substance use type: former substance user current occupational status: employed and other Travel in the last 8 weeks?: None caffeine: Yes Have you lived/traveled outside US in past 30 days?: No Contact w/someone who lives/traveled outside US past 30 days?: No Exposure to someone with infectious disease in past 14 days?: No Do you have a fever (greater than 100.4 F or 38 C)?: No Have you tested positive for COVID-19?: No Exposed to someone with COVID-19 in past 14 days?: No Do you have a sore throat?: No Do you have a cough?: No Do you have any weakness?: No Are you experiencing any nausea/vomitting?: No Do you have any diarrhea?: No Are you experiencing any unusual bleeding?: No Do you have any muscle aches/pain?: No Do you have any abdominal pain?: No Are you experiencing loss of taste or smell?: No Other Medical History Have you received the Flu Vaccine for this season: No Have you received the Pneumonia Vaccine: No Review of Systems Review of Systems Review of systems (narrative): Negative *Cardiovascular Comments: Negative *Gastrointestinal Comments: Negative *Genitourinary Comments: Negative *Musculoskeletal Comments: Negative *Neurologic Comments: Negative Meds Home Medications and Allergies Home Medications ?Medication ?Instructions ?Recorded ?Confirmed ?Type aspirin 81 mg chewable tablet 81 mg PO HS antiplatelet 04/03/20 11/20/24 History hydrochlorothiazide 12.5 mg capsule 25 mg PO DAILY htn 04/03/20 11/20/24 History magnesium oxide 400 mg PO DAILY Supplement 04/03/20 11/20/24 History potassium 99 mg tablet 99 mg PO DAILY Supplement 04/03/20 11/20/24 History vitamin D3 500 unit-vit K 500 1 each PO DAILY Supplement 04/03/20 11/20/24 History mcg-berberine 90 mg-hops 370 mg tablet fluticasone propionate 50 1 spray intranasal Q12H 12/13/21 11/20/24 History mcg/actuation nasal spray,suspension (24 Hour Allergy Relief) carvedilol 12.5 mg tablet 12.5 mg PO TID 09/13/23 11/20/24 History losartan 100 mg tablet 100 mg PO DAILY 09/13/23 11/20/24 History metformin 500 mg tablet 500 mg PO TID glucose 09/13/23 11/20/24 History nifedipine 60 mg tablet,extended 60 mg PO DAILY 09/13/23 11/20/24 History release 24 hr (Procardia XL) semaglutide 0.25 mg or 0.5 mg (2 1 mg SQ WEEKLY 09/13/23 11/20/24 History mg/3 mL) subcutaneous pen injector (Ozempic) tramadol 50 mg tablet 50 mg PO .prn 09/13/23 11/20/24 History atorvastatin 10 mg tablet 10 mg PO .Q other night 11/12/24 11/20/24 History celecoxib 200 mg capsule (Celebrex) 200 mg PO Q12H 11/12/24 11/20/24 History coQ10 (ubiquinol) 100 mg capsule 100 mg PO DAILY 11/12/24 11/20/24 History (Qunol Celio CoQ10) mecobalamin (vitamin B12) 500 mcg 500 mcg PO DAILY 11/12/24 11/20/24 History chewable tablet omeprazole magnesium 20 mg 20 mg PO DAILY PRN Abdominal Pain 11/12/24 11/20/24 History tablet,delayed release (Prilosec OTC) New Prescriptions to Start Prescriptions: Allergies Allergy/AdvReac Type Severity Reaction Status Date / Time ciprofloxacin (From CIPRO) Allergy Mild Joint Pain Verified 11/20/24 07:25 Exam Data for Last 24 hours I & O for Last 24 hours: Intake & Output 11/17/24 11/18/24 11/19/24 11/20/24 23:59 23:59 23:59 23:59 Weight 205 lb *Routine HEENT Exam Head: Present normocephalic Eye: Present EOMI and PERRL ENT: Present mucous membranes moist *Routine Neck Exam Neck: Present supple *Routine Respiratory Exam Respiratory: Present CTA bilaterally *Routine Cardiovascular Exam Cardiovascular: Present RRR *Routine Abdominal Exam Abdominal: Present soft and normoactive bowel sounds; Absent tenderness *Routine Rectal Exam Rectal:: deferred *Routine Genitalia Exam Genitalia:: deferred *Routine Extremities Exam Extremities: Absent cyanosis, clubbing or edema *Routine Skin Exam Skin: Present warm; Absent rash *Routine Neurological Exam Neurological: Present alert and oriented X3 Assessment and Plan *Assessment and plan (1) Dysphagia: Status: Acute Qualifiers: Dysphagia type: unspecified Qualified Code(s): R13.10 - Dysphagia, unspecified Category: Medical Code(s): R13.10 - Dysphagia, unspecified (2) Esophageal web: Status: Acute Category: Medical Code(s): Q39.4 - Esophageal web (3) History of esophageal stricture: Status: Acute Category: Medical Code(s): Z87.19 - Personal history of other diseases of the digestive system (4) Esophageal inlet patch: Status: Acute Category: Medical Code(s): Q39.8 - Other congenital malformations of esophagus Plan A/P: 1. Recurrent dysphagia is the preprocedural diagnosis. The patient will be anesthetized/sedated using MAC sedation. The patient has been seen and examined. Cardiac and lung assessment prior to the examination is stable. Proceed with planned diagnostic/therapeutic EGD.
--- NOTE | 2024-11-20 07:07 | P.PCN_ITS ---
[facility] Procedure Note Date: 11/20/24 Time: 08:02 Procedure Note:: Upper Endoscopy Procedure Report: Esophagogastroduodenoscopy with cold biopsies, APC ablation and TTS balloon dilation Endoscopost: Geremias Hannah II, MD Referring Physician: PJ Carmichael, [address] [place] [address] Date of Procedure: November 20, 2024 Equipment: Olympus GIF 190 standard upper endoscope Sedation: MAC sedation Indications: Mr. Mccann is a 59-year-old gentleman who is here diagnostic/therapeutic EGD because of his recurrent dysphagia. The patient did have dysphagia and had an EGD with Dr. Diane Panchal MD in September 2023. At that time, he did have a large proximal esophageal inlet patch with proximal esophageal web that was dilated to 56 Indonesian with a bougie dilator. The patient did improve but has had recurrence. This was worse 2 to 3 weeks ago and he feels this in the retrohyoid region. This is primarily to solids and not liquids. He reports no frequent clearance of the throat, coughing or hoarseness. He does have a history of polyps tobacco/chewing tobacco use. He does have a prior history of GERD and had been on Prilosec for 10 years. He now only uses Prilosec as needed. He does get occasional heartburn and reflux. He reports no hematemesis, melena, weight loss or abdominal pain. He did have a colonoscopy elsewhere in [place] 2 years ago and was referred there by his PCP out of [place] (Che Rodriguez). He does state this examination was normal. Procedure: Prior to the procedure, a history and physical exam was performed, and patient's medications and allergies were reviewed. The risks, benefits and alternatives of the sedation and procedure were discussed with the patient. All questions were answered and informed consent was obtained. The patient was brought to the procedure room. Patient identification and proposed procedure were verified by the physician and the nurse. The patient was placed in a left lateral decubitus position and the scope was passed under direct vision. Throughout the procedure, the patient's blood pressure, pulse, and oxygen saturations were monitored continuously. The upper GI endoscopy was accomplished without difficulty. The patient tolerated the procedure well. Findings: The scope was passed directly into the upper esophagus and advanced to the fourth portion of the duodenum. The post bulbar duodenum, ampulla and duodenal bulb were normal with normal mucosa and conniventes. The scope was withdrawn through a normal duodenal bulb and pylorus into the stomach. There was mild antral gastropathy. The body and fundus of the stomach were normal. Cold biopsies were taken from the antrum. Upon retroflexion there was a very small sliding 1 to 2 cm hiatal hernia. The scope was then withdrawn into the esophagus. There was no evidence of reflux esophagitis but there was a single tongue of salmon-colored mucosa that was biopsied. There was a distal fibrotic Schatzki's ring that was originally 16 mm and this was dilated to 20 mm with a TTS hydrostatic balloon. There was a larger circumferential proximal esophageal inlet patch that extended 1.5 cm. A single biopsy was taken from the proximal portion of the inlet patch. The entire inlet patch was ablated/coagulated using APC (argon plasma coagulation). There was an associated web just proximal to the inlet patch. The entire esophagus was then dilated to 20 mm/60 Indonesian with a TTS hydrostatic balloon. The remainder of the esophageal mucosa was normal. Impression: 1. 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 Proximal esophageal web 3. Distal esophageal Schatzki's ring 4. Nonerosive GERD with very small sliding 1 to 2 cm hiatal hernia Plan: I will follow-up the biopsies. The patient should derive improvement with dilation but also ablation of the inlet patch. I would recommend continuation of PPI therapy (omeprazole).
[2024-11-20 07:35] VITALS: BP 169/91; PULSE 69; RESP 17; TEMP 36.3; O2SAT 97
[2024-11-20 07:43] LABS: POC Glucose,Bedside 103 (70-110)
[2024-11-20] MEDS: LACTATED RINGERS 1000ML 1,000 ML 50 ML IV (07:43)
--- NOTE | 2024-11-20 07:49 | EXP.ANES.CKL ---
[facility] Disclaimer: The information contained in this section may have been updated after the patient was seen, as this information can be updated by other users. Medical History Dysphagia Chronic sinusitis Surgical History History of cardiac cath History of placement of ear tubes Family History Other No significant family history Social History Smoking Status: Current every day smoker tobacco type: smokeless tobacco alcohol intake: current alcohol intake frequency: holidays/special occasions only substance use type: former substance user current occupational status: employed and other Travel in the last 8 weeks?: None caffeine: Yes Have you lived/traveled outside US in past 30 days?: No Contact w/someone who lives/traveled outside US past 30 days?: No Exposure to someone with infectious disease in past 14 days?: No Do you have a fever (greater than 100.4 F or 38 C)?: No Have you tested positive for COVID-19?: No Exposed to someone with COVID-19 in past 14 days?: No Do you have a sore throat?: No Do you have a cough?: No Do you have any weakness?: No Are you experiencing any nausea/vomitting?: No Do you have any diarrhea?: No Are you experiencing any unusual bleeding?: No Do you have any muscle aches/pain?: No Do you have any abdominal pain?: No Are you experiencing loss of taste or smell?: No [facility] Anesthesia Checklist Patient Identification Patient Identification: Arm Band Structural Data Admitted From: Home Planned Operative Procedure/s: EGD Consent for Planned Operative Procedure(s) Verified: Yes Verified Documents: Surgical Consent and History and Physical NPO Status Verified Time NPO: 00:00 Additional verifications Anesthesia Reactions: No Airway Assessment Mallampati Score:: Class II C-Spine Mobility Assessed: Yes TMJ Mobility Assessed: Yes Dentition: Edentulous Neurological Assessment Level of Consciousness: Awake, Alert and Appropriate Anesthesia Plan Anesthesia Risk discussed: Yes Anesthesia Plan: Verified ASA Class: II Anesthesia Type: MAC
[2024-11-20 08:03] VITALS: BP 137/79; PULSE 65; RESP 16; TEMP 36.3; O2SAT 96
[2024-11-20 08:13] VITALS: BP 137/78; PULSE 70; RESP 16; TEMP 36.3; O2SAT 98
[2024-11-20 08:23] VITALS: BP 136/72; PULSE 71; RESP 16; TEMP 36.3; O2SAT 98
[2024-11-20 08:33] VITALS: BP 137/70; PULSE 72; RESP 16; TEMP 36.3; O2SAT 98
[2024-11-20 08:43] VITALS: BP 140/71; PULSE 70; RESP 16; TEMP 36.3; O2SAT 98
== END 2024-11-20 08:43 | disposition home or self-care (01) ==
PROVIDERS: Visit Provider Internal Medicine Gastroenterology
PROC: 0DJ08ZZ Inspection of Upper Intestinal Tract, Via Natural or Artificial Opening Endoscopic (ICD-10-PCS; CPT 43239; principal; 2024-11-20 08:00)
DX: K31.9 Disease of stomach and duodenum, unspecified (principal); K22.2 Esophageal obstruction; K21.9 Gastro-esophageal reflux disease without esophagitis; K44.9 Diaphragmatic hernia without obstruction or gangrene; Z88.1 Allergy status to other antibiotic agents; Z79.84 Long term (current) use of oral hypoglycemic drugs; Z79.899 Other long term (current) drug therapy
CPT/HCPCS: 43239; 43270; 82962; C1726; C2618; J2003; J2704; J7120